=== PATIENT | female | born 1970 | race Caucasian/White ===

== ENCOUNTER 2017-08-27 02:17 | Emergency (ER) | payer OTHER ==
[~2017-08-27 02:17] MED LIST: AUG500 PO; COL100 PO; FERROUS SUL PO; FLA250 PO; LAC PO; LEVAQUIN750 MG PO; LEVI PO; NAP500 PO; NORCO1 TA1 PO; NORCO1 TA2 PO; SYN75 PO; XARELTO10 M1 PO; ZES5 PO
[2017-08-27 03:20] LABS: BASOPHIL % 1.6 % (0-2); PLATELET COUNT 242 x10^3mcL (130-400); RED CELL DISTRIBUTION WIDTH 12.9 % (11.5-14.5)
[2017-08-27 03:21] LABS: CALCIUM 9.2 mg/dL (8.5-10.1); CARBON DIOXIDE 30.7 mmol/L (21-32); CHLORIDE SERUM 101 mmol/L (98-107); GFR1 > 60 mL/min; GLUCOSE SERUM 93 mg/dL (74-106); POTASSIUM SERUM 3.1 mmol/L (3.5-5.1); SODIUM SERUM 138 mmol/L (136-145)
[2017-08-27 03:26] LABS: ALBUMIN 3.7 g/dL (3.4-5.0); ALKALINE PHOSPHATASE 136 U/L (46-116); ALT/SGPT 28 U/L (14-59); AST/SGOT 22 U/L (15-37); BILIRUBIN TOTAL 0.41 mg/dL (0.20-1.00)
[2017-08-27 03:30] LABS: TOTAL PROTEIN, SERUM 9.1 g/dL (6.4-8.2)
[2017-08-27 04:29] VITALS: BP 144/90
== END 2017-08-27 04:29 | disposition home or self-care (01) ==
LOC: ED 02:17
PROVIDERS: Emergency Medicine
DX: G56.03 Carpal tunnel syndrome, bilateral upper limbs (principal); E87.6 Hypokalemia
CPT/HCPCS: 36415; A4570; J1170; J1885; Q0162

== ENCOUNTER 2018-02-14 09:06 | Emergency (ER) | payer OTHER ==
[~2018-02-14] VITALS: Ht 154.9 cm; Wt 82.5 kg
[2018-02-14 09:16] VITALS: Ht 154.9 cm; Wt 82.5 kg
[2018-02-14 11:02] VITALS: BP 134/96
== END 2018-02-14 11:02 | disposition home or self-care (01) ==
LOC: ED 09:06
DX: M25.532 Pain in left wrist (principal); M25.531 Pain in right wrist; I10 Essential (primary) hypertension; E78.00 Pure hypercholesterolemia, unspecified; D64.9 Anemia, unspecified

== ENCOUNTER 2018-09-15 12:53 | Emergency (ER) | payer OTHER ==
[~2018-09-15] VITALS: Ht 157.5 cm; Wt 81.6 kg
[2018-09-15 14:45] LABS: BASOPHIL % 0.1 % (0-2); PLATELET COUNT 186 x10^3mcL (130-400); RED CELL DISTRIBUTION WIDTH 13.9 % (11.5-14.5)
[2018-09-15 14:46] LABS: CALCIUM 8.2 mg/dL (8.5-10.1); CARBON DIOXIDE 27.7 mmol/L (21-32); CHLORIDE SERUM 105 mmol/L (98-107); CREATININE SERUM 0.7 mg/dL (0.6-1.0); GFR1 > 60 mL/min; GLUCOSE SERUM 111 mg/dL (74-106); POTASSIUM SERUM 3.7 mmol/L (3.5-5.1); SODIUM SERUM 138 mmol/L (136-145)
[2018-09-15 14:51] LABS: ALKALINE PHOSPHATASE 127 U/L (46-116); ALT/SGPT 27 U/L (14-59); AST/SGOT 20 U/L (15-37); BILIRUBIN TOTAL 0.7 mg/dL (0.20-1.00); TOTAL PROTEIN, SERUM 8.1 g/dL (6.4-8.2)
[2018-09-15 14:52] LABS: ALBUMIN 3.2 g/dL (3.4-5.0)
[2018-09-15 15:27] LABS: UA SPECIFIC GRAVITY 1.025 (1.005-1.035); microscopic required? YES; urine erythrocyte 2+ (NEGATIVE)
[2018-09-15 16:12] VITALS: BP 120/53
== END 2018-09-15 16:12 | disposition home or self-care (01) ==
LOC: ED 12:53
PROVIDERS: Emergency Medicine
DX: M25.562 Pain in left knee (principal); M25.561 Pain in right knee; M25.511 Pain in right shoulder; N39.0 Urinary tract infection, site not specified; I10 Essential (primary) hypertension; E03.9 Hypothyroidism, unspecified; E78.00 Pure hypercholesterolemia, unspecified; Z90.710 Acquired absence of both cervix and uterus; Z86.2 Personal history of diseases of the blood and blood-forming organs and certain disorders involving the immune mechanism
CPT/HCPCS: J0696; J2001

== ENCOUNTER 2018-12-08 06:02 | Emergency (ER) | payer OTHER ==
[~2018-12-08] VITALS: Ht 152.4 cm; Wt 82.6 kg
[2018-12-08 06:06] VITALS: Ht 152.4 cm; Wt 82.6 kg
[2018-12-08 08:00] VITALS: BP 129/81
== END 2018-12-08 08:00 | disposition home or self-care (01) ==
LOC: ED 06:02
DX: R51 Headache (principal); M25.462 Effusion, left knee; I10 Essential (primary) hypertension; E03.9 Hypothyroidism, unspecified; E78.00 Pure hypercholesterolemia, unspecified; G56.03 Carpal tunnel syndrome, bilateral upper limbs; Z90.710 Acquired absence of both cervix and uterus
CPT/HCPCS: J1200; J2270; J2765